=== PATIENT | male | born 1995 | race Caucasian/White ===

== ENCOUNTER 2020-06-16 09:32 | Emergency (ER) | payer SELFPAY ==
--- NOTE | 2020-06-16 13:59 | RAD ---
RIGHT ANKLE THREE VIEWS: 06/16/20 No acute fracture was seen. There is some mild soft tissue swelling around the joint. The joint space is normal in width. A very tiny calcaneal spur was suggested. IMPRESSION: Soft tissue swelling. POS: HOME
--- NOTE | 2020-06-16 14:00 | RAD ---
RIGHT FOOT THREE VIEWS: 06/16/20 No fracture or periosteal reaction was seen. All bones appeared intact and the joints were unremarkab le. A tiny calcaneal spur was noted. IMPRESSION: No acute bony findings. POS: HOME
== END 2020-06-16 10:31 | disposition home or self-care (01) ==
LOC: BURERS 09:32
DX: S93.401A Sprain of unspecified ligament of right ankle, initial encounter (principal); F17.210 Nicotine dependence, cigarettes, uncomplicated; X58.XXXA Exposure to other specified factors, initial encounter
CPT/HCPCS: 99406

== ENCOUNTER 2022-08-31 08:24 | Emergency (ER) | payer SELFPAY | END 2022-08-31 09:50 | disposition home or self-care (01) | LOC: BURERS 08:24 | DX: K52.9 Noninfective gastroenteritis and colitis, unspecified (principal) | CPT/HCPCS: 99283 ==